=== PATIENT | male | born 1970 | race Caucasian/White ===

== ENCOUNTER 2019-06-04 08:15 | Day surgery (SDC) | payer BC ==
[~2019-06-04] VITALS: Ht 188 cm; Wt 100.2 kg
[~2019-06-04 08:15] MED LIST: CIALIS2.5 MG PO; [UNRECOGNIZED DRUG - CODE]
[2019-06-04 08:49] VITALS: BP 149/88; Ht 188 cm; Wt 100.2 kg
[2019-06-04] MEDS ORDERED: PERCOCET 5-3251 TAB PO (12:25)
[2019-06-04] MEDS ORDERED: TORADOL10 MG PO (12:26)
--- NOTE | 2019-06-04 17:51 | NUR ---
1545-DISCHARGE CRITERIA MET. REMOVED IV WITH CATH INTACT,DISPOSED INTO SHARPS,COVERED SITE WITH GUAZE,SECURED WITH MEDIPORE TAPE. REVIEWED POST OPERATIVE INSTRUCTIONS AND FOLLOW UP APPOINTMENT.
--- NOTE | 2019-06-04 17:53 | NUR ---
1550-ESCORTED OUT VIA W/C WITH SPOUSE AWAITING TO DRIVE HOME
--- NOTE | 2019-06-04 20:38 | OP ---
PATIENT NAME: JOSE RAMSAY MEDICAL RECORD: [id number] :74 LOCATION:AL ADMISSION DATE: SURGEON: THAI ALDANA DO DATE OF OPERATION: 06/04/2019 PROCEDURE PERFORMED: Right knee arthroscopy with partial medial meniscectomy and ganglion cyst excision. 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 INDICATIONS: Mr. Ramsay is a 49-year-old male who presented to my office with an MRI with the above findings. I informed him we would if we could repair the meniscus, if not, we just trimmed out and informed him the risk of recurrence of the ganglion cyst as well as continued pain in the knee and a total knee looked around. 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 He said yes. He is aware of the other risks of the procedure and signed the consent. SURGEON: Thai Aldana DO DESCRIPTION OF PROCEDURE: The patient received a block by anesthesia in preoperative area and taken to the operative suite, laid in supine position, given very light sedation and given 2 grams Ancef. The right lower extremity was then prepped and draped in sterile fashion. Timeout was performed. Everyone was in agreement with correct side, site, patient and procedure. I then began by injecting the portal sites with 0.25% Marcaine with epinephrine also around the site of the ganglion cyst. The 11 blade scalpel was then used to establish a lateral portal and trocar was entered into the knee. Once we entered the knee, the camera entered in and inspected suprapatellar pouch and loose body seen in it, also the lateral and medial gutters. We then brought the knee from extension of flexion and went to the medial compartment. An 18-gauge spinal needle was then used to establish a medial portal with an 11-blade scalpel. Trocar was then entered the knee. Probe was then brought in and we saw the meniscal tear more of a radial tear in the posterior horn of the medial meniscus to the middle part more towards the medial part. The biter and shaver then brought in to clean that out, and once this was trimmed back to stable position, I then did an abrasion chondroplasty medial femoral condyle, checked the ACL with the probe, was in good position and then [id number] knee, checked the lateral compartment. There is good cartilage and the meniscus was not torn. We then checked the trochlea and grade III chondromalacia of it and then suction off water and removed excess fluid out of the knee. I then turned the attention to the medial side of the knee where the ganglion was, made an incision over it with a 15 blade scalpel. Careful dissection was made down to the ganglion, was quite large ruptured and remove the ganglion tissue with a rongeur. Once that was removed and all the cyst was removed, we then irrigated and closed with 2-0 Vicryl in interrupted fashion, first with a #1 Vicryl in a [id number] fascia on top of the cyst and then a 2-0 Vicryl on the skin in an interrupted fashion, 4-0 Monocryl around the skin, 4-0 Monocryl was also used on the portal sites in a vertical fashion and Steri-Strips, Adaptic, 4 x 4's, OPERATIVE REPORT [id number] JOSE RAMSAY ABD, Webril, Douglas wrap, and NAHID stockings was placed on the knee. He was placed on knee immobilizer due to his block and awakened and taken to recovery in stable condition. BLOOD LOSS: Minimal. COMPLICATIONS: None. TRANSINT:[id number] Voice Confirmation ID: [id number] DOCUMENT ID: [id number] THAI ALDANA DO at 2038 CC: [id number] DICTATION DATE: 06/04/19 142 FILM NUMBERER: 06/04/19 192 [facility] 06/04/19 [facility] [address] [place] [address]
== END 2019-06-04 15:50 | disposition home or self-care (01) ==
LOC: D.OPS 08:15 → D.PAN 10:30 → D.OPS 10:30
PROVIDERS: ATTEND Orthopaedic Surgery
DX: S83.241A Other tear of medial meniscus, current injury, right knee, initial encounter (principal); X58.XXXA Exposure to other specified factors, initial encounter; M67.461 Ganglion, right knee; M94.261 Chondromalacia, right knee